=== PATIENT | female | born 1960 | race Two or more races ===

== ENCOUNTER 2023-03-27 09:47 | Emergency (ER) | payer MEDICAID, SELFPAY ==
--- NOTE | ~2023-03-27 | XR_ITS ---
EXAMINATION: XR HAND, RIGHT CLINICAL INFORMATION: Index finger pain and swelling COMPARISON: None available. TECHNIQUE: PA, lateral, and oblique views of the right hand. FINDINGS: No definite acute fracture or dislocation of the right hand is identified. Joint spaces appear maintained. There is calcification/ossification seen about the radial aspect of the second distal interphalangeal joint which may be related to acute calcific periarthritis. Due to the acute painful nature this would less likely be related to dystrophic calcification of previous trauma. There is some adjacent soft tissue swelling present. XR/XR hand RT min 3V IMPRESSION: Calcific density adjacent to the radial aspect of the second distal interphalangeal joint consistent with acute calcific periarthritis. Adjacent soft tissue prominence.
[2023-03-27 10:03] VITALS: BP 146/71; PULSE 76; RESP 16; TEMP 36.2; O2SAT 96; BMI 29.5
--- NOTE | 2023-03-27 13:09 | ED.EXTPRO ---
HPI - Extremity Problem General Chief complaint: Extremity Injury, Upper Stated complaint: R Index Finger Pain Time Seen by Provider: 03/27/23 13:04 Source: patient and diplomatic interpreter/translator Mode of arrival: ambulatory Limitations: language barrier History of Present Illness HPI Narrative: Patient is a 62-year-old female presenting with right index finger pain for the past several weeks. She describes the pain as throbbing. She reports decreased ROM with flexion related to pain. She denies any known injury or trauma. She denies any fevers. She reports pain to other fingers of right hand as well but states index finger is the worst. She denies any numbness or tingling. Related Data Allergies Allergy/AdvReac Type Severity Reaction Status Date / Time No Known Allergies Allergy Verified 03/27/23 10:06 Review of Systems Review of Systems: As per HPI Yes all other systems are reviewed and are negative Constitutional: Constitutional: Reports as per HPI [facility] Social History Social History Advance Directives: No Advance Directives Information Provided: Yes Physical Exam Vital Signs: Vital Signs: Last Vital Signs Temp 97.1 F 03/27/23 10:03 Pulse 76 03/27/23 10:03 Resp 16 03/27/23 10:03 BP 146/71 H 03/27/23 10:03 Pulse Ox 96 03/27/23 10:03 O2 Del Method Room Air 03/27/23 10:03 BMI result Body Mass Index 29.5 Const: General: cooperative, healthy appearing and no acute distress Orientation/consciousness: oriented to person, oriented to place, oriented to time and patient oriented x3 Limitations: no limitations HEENT: Head: Yes normocephalic and Yes atraumatic Ears: external ears normal General nose exam: Normal external nose present Face and sinus: Yes face symmetric Mouth: oropharynx normal and moist mucous membranes Throat: Yes uvula midline Eyes: Pupils: Equal, round and reactive pupils present Neck: Neck: Yes normal visual inspection and Yes supple Resp: Effort & Inspection: normal respiratory effort and able to speak in complete sentences Auscultation: clear to auscultation bilaterally Cardio: Rate: regular rate Rhythm: regular rhythm Heart sounds: S1 normal heart sound present and S2 normal heart sound present GI: Palpation (GI): Soft to palpation and nontender Auscultation: normoactive bowel sounds : General: Yes no CVA tenderness Back/Spine/Pelvis: Back: no CVA tenderness Skin: General skin exam: elasticity normal and turgor normal Neuro: General: oriented to person, oriented to place, oriented to time, patient oriented x3, moves all extremities, no focal motor deficits and CN's II-XI intact bilaterally Cranial nerves: Yes Equal, round and reactive pupils present Cognition (Neuro): normal cognition Extrem: General: Yes full ROM Right upper extremity: Extremity exam: right hand Details: abnormal to inspection Details: joint swelling (Swelling to DIP and PIP of 2nd finger), neuromotor exam normal Details: wrist extension normal, thumb opposition normal, thumb IP flexion normal, thumb ADduction normal and fingers 2-5 ABduction normal, neurosensory exam normal Details: radial nerve sensory function normal, ulnar nerve sensory function normal, median nerve sensory function normal and digital nerve sensory function normal, tenderness Location: of the 2nd digit Location: at the PIP joint and at the DIP joint and abnormal ROM of finger (limited flexion at DIP); no unusual warmth, no ecchymosis and no crepitus Psych: Mental Status: mental status grossly normal Affect: normal affect Thought process: Normal thought process present Medical Decision Making Medical Decision Making MDM Narrative: Patient is a 62-year-old female presenting with right index finger pain for the past several weeks. On exam patient is A+Ox3, normal neuro exam, limited flexion at DIP joint of 2nd finger of right hand with mild swelling, no erythema, calor, or ecchymosis. Considered acute fracture, arthritis. Low index of suspicion for dislocation, osteomyelitis, tenosynovitis. Calcific density adjacent to DIP of 2nd digit consistent with arthritis on x-ray. Will discharge home on NSAIDs, ice, elevation, and follow up with PCP. Differential Diagnosis Differential Diagnoses: The differential diagnosis associated with the presentation includes As above. Independent Interpretation I performed an independent interpretation of an: Plain X-Ray Interpretation: I independently reviewed the x-ray and agree with the radiologist's interpretation. Radiology Impression Discussion of test interpretation with radiology: I have reviewed the radiologist's reading. Radiologist Impression: FINDINGS: No definite acute fracture or dislocation of the right hand is identified. Joint spaces appear maintained. There is calcification/ossification seen about the radial aspect of the second distal interphalangeal joint which may be related to acute calcific periarthritis. Due to the acute painful nature this would less likely be related to dystrophic calcification of previous trauma. There is some adjacent soft tissue swelling present.? XR/XR hand RT min 3V IMPRESSION: Calcific density adjacent to the radial aspect of the second distal interphalangeal joint consistent with acute calcific periarthritis. Adjacent soft tissue prominence. External Record Review External record reviewed: Inpatient record, Office record and Outpatient record Prescription Management I considered prescription management with: Pain Medication Discharge Plan Discharge Clinical Impression: Arthritis of finger of right hand Patient Disposition: Home, Self-Care Instructions: Arthritis (ED) Additional Instructions: usted fue evaluado en el departamento de emergencias hoy por dolor en la mano derecha. Bass evaluaci?n no encontr? evidencia de condiciones m?dicas que requieran gianfranco intervenci?n de emergencia en camille momento. Bass radiograf?a muestra evidencia de artritis en el libra dedo de la mano derecha. Debe comenzar a franki un DIVYA emigdio ibuprofeno o naproxeno seg?n las instrucciones del paquete, aplicar hielo en el ?cher merissa 10 a 15 minutos a la vez varias veces al d?a con cuidado de no aplicar hielo y mantener la mano elevada en reposo. Onofre un seguimiento con bass proveedor de atenci?n primaria esta semana. Regrese al departamento de emergencias si experimenta un empeoramiento del dolor, entumecimiento, hormigueo, cambio de color en los dedos o cualquier otro s?ntoma preocupante. Print Language: Samoan
== END 2023-03-27 14:13 | disposition home or self-care (01) ==
PROVIDERS: Emergency Provider Emergency Medicine Emergency Medical Services
DX: M19.041 Primary osteoarthritis, right hand (principal); M79.644 Pain in right finger(s)
CPT/HCPCS: 73130; 99282; 99283